=== PATIENT | female | born 1985 | race Caucasian/White ===

== ENCOUNTER → 2017-01-15 | Outpatient (CLI) | payer OTHER ==
[~2017-01-15] MED LIST: ALPRAZOLAM; ATARAX PO; BACTRIM DS TABL1 TA1 PO; BENTYL10 MG PO; CARAFATE1 G; CARAFATE1 G PO; CIPRO; CYMBALTA PO; DHA100 MG PO; DICLOFENAC PO; DIFLUCAN PO; FLAGYL; FLEXERIL10 MG PO; HYDROCODON-ACE1 EAC7 PO; KCL PO; LAMICTAL PO; LAMICTAL100 MG PO; LINZESS145 MCG; LORTAB 5/500 TA1 TA1 PO; ONE DAILY MULTI1 TA3 PO; PHENERGAN25 M1; PHENERGAN25 M1 PO; PHENERGAN25 MG PO; PRENATAL CAPLE1 EACH; PRENATAL FORMUL1 TA3 PO; PREVACID PO; TYLENOL #3; VICODIN 5/1 TAB 5/50 PO; VOLTAREN75 MG PO; VYBRID PO; XANAX0.5 MG PO; ZEGERID OTC 201 EACH PO; ZEGERID40 MG/PKT; ZEGERID40 MG/PKT PO; ZOFRAN ODT4 MG SL; ZOLOFT
--- NOTE | ~2017-01-15 | CR4 ---
[facility] A Service of [facility] & [facility] RADIOLOGY TEXT RESULTS PATIENT: MAGGY SPAULDING LOCATION: [facility] : 85 UNIT #: [id number] AGE: [address]: LUIZA SANTA SEX: F ORDER DR: [id number] [facility] [address] [place], [place] [address] [id number] O MR#: [id number] Acc #: [id number] NAME: MAGGY SPAULDING : 1985 SEX: F STUDY DATE/TIME: 01/15/2017 11:45 UNIT: [facility] ROOM: STUDY DESCRIPTION: CR Abdomen Flat Upright or Dec Attending Physician: Rick Oconnor Referring Physician: Rick Oconnor Ordering Physician: Rick Oconnor Primary Care Physician: Stacey Carcamo M.D. MEDICAL IMAGING REPORT This report is preliminary unless electronic signature is present EXAM Flat and upright views of the abdomen INDICATIONS Mid-abdominal pain for the past 6 days. TECHNIQUE Supine and upright views of the abdomen and pelvis. COMPARISON 04/19/2016. FINDINGS No free air. Non-obstructed bowel gas pattern. IUD is seen in the central pelvis. IMPRESSION No acute findings. Dictated by... Juan Frey M.D. THIS IS AN ELECTRONICALLY VERIFIED REPORT Juan Frey M.D. at 01/16/2017 2:27 PM EED/pcl TD: 01/15/2017 23:13 JOB #: [id number] MEDICAL IMAGING REPORT Page 1 of 1 COPY
== END | disposition home or self-care (01) ==
LOC: CRAD 11:11
DX: R10.9 Unspecified abdominal pain (principal)
CPT/HCPCS: 74020